=== PATIENT | female | born 1975 | race Caucasian/White ===

== ENCOUNTER 2020-07-10 01:52 | Inpatient (IN) | payer OTHER ==
[~2020-07-10] VITALS: Ht 160 cm; Wt 74.6 kg
[2020-07-10 02:27] LABS: BASOPHILS # (AUTO) 0.07 x10^3/uL (0-0.1); BASOPHILS % (AUTO) 1 % (0-1); EOSINOPHILS # (AUTO) 0.15 x10^3/uL (0-0.4); EOSINOPHILS % (AUTO) 1 % (1-7); LYMPHOCYTES # (AUTO) 0.75 x10^3/uL (1-3.4); LYMPHOCYTES % (AUTO) 5 % (22-44); MD NO; MEAN CORPUSCULAR HEMOGLOBIN 28.8 pg (27.0-34.8); MEAN CORPUSCULAR HGB CONC 32.4 g/dL (32.4-35.8); MEAN CORPUSCULAR VOLUME 88.8 fL (80-100); MEAN PLATELET VOLUME 8.3 fL (7.4-10.4); MONOCYTES # (AUTO) 0.37 x10^3/uL (0.2-0.8); MONOCYTES % (AUTO) 3 % (2-9); NEUTROPHILS # (AUTO) 13.61 x10^3/uL (1.8-6.8); NEUTROPHILS % (AUTO) 91 % (42-75); PLATELET COUNT 369 x10^3/uL (130-400); RED BLOOD COUNT 3.46 x10^6/uL (3.82-5.3); RED CELL DISTRIBUTION WIDTH 12.4 % (9.6-15.2)
[2020-07-10 02:40] LABS: ALANINE AMINOTRANSFERASE 19 U/L (12-78); ALBUMIN 2.4 g/dL (3.4-5.0); ANION GAP 11 mmol/L (5-15); CALCIUM 8.1 mg/dL (8.5-10.1); CHLORIDE 109 mmol/L (98-107); CREATININE 5.31 mg/dL (0.55-1.02)
[2020-07-10 02:44] LABS: ALKALINE PHOSPHATASE 167 U/L (45-117); BILIRUBIN,TOTAL 0.1 mg/dL (0.2-1.0); TOTAL PROTEIN 7.1 g/dL (6.4-8.2); TROPONIN I < 0.015 ng/mL (0.000-0.045)
[2020-07-10] MEDS ORDERED: SODIUM CHLORIDE 0.9% 1,000ML IVBOLUS ONE (03:00)
[2020-07-10] MEDS ORDERED: INSULIN SINGLE DOSE, ER IVPush ONE (03:00)
[2020-07-10] MEDS ORDERED: INSULIN LISPRO SINGLE DOSE, ER SQ-INSULIN ONE (03:07)
--- NOTE | 2020-07-10 03:16 | NUR ---
IVF INFUSING, PT. MEDICATED PER MAR. FAMILY AT FOR SUPPORT.
[2020-07-10] MEDS ORDERED: SODIUM CHLORIDE 0.9% 1,000 ML IV SCH (03:55)
[2020-07-10] MEDS ORDERED: SODIUM BICARBONATE 1 MEQ/ML, 50ML VIAL IVPush ONE (04:00)
[2020-07-10] MEDS ORDERED: DEXTROSE 4 GM TAB.CHEW PO PRN (04:00)
[2020-07-10] MEDS ORDERED: DEXTROSE 50%, 50ML SYRINGE IVPush PRN (04:00)
[2020-07-10] MEDS ORDERED: ACETAMINOPHEN 325 MG TABLET PO PRN (04:00)
[2020-07-10] MEDS ORDERED: CEFTRIAXONE PMX 1GM/50ML 50 ML IV SCH (04:00)
[2020-07-10] MEDS ORDERED: FUROSEMIDE 20 MG/2 ML IV ONE (04:00)
[2020-07-10] MEDS ORDERED: CALCIUM GLUCONATE 0.46MEQ/1ML IVPush ONE (04:00)
[2020-07-10] MEDS ORDERED: GLUCAGON 1 MG IM PRN (04:00)
[2020-07-10] MEDS ORDERED: SODIUM BICARBONATE 8.4% 50 MEQ in SODIUM CHLORIDE 0.45% 1,000 ML IV SCH (04:00)
--- NOTE | 2020-07-10 04:25 | NUR ---
Report given to Ellie. All questions answered
[2020-07-10 04:45] VITALS: BP 158/94
[2020-07-10] MEDS ORDERED: CALCIUM GLUCONATE 4.6 MEQ in SODIUM CHLORIDE 0.9% 100 ML IV ONE (05:00)
[2020-07-10] MEDS ORDERED: CALCIUM GLUCONATE 4.6 MEQ in SODIUM CHLORIDE 0.9% 50 ML IV ONE (05:00)
[2020-07-10] MEDS ORDERED: METF500T17 PO (05:05)
[2020-07-10] MEDS ORDERED: LISI-170 PO (05:05)
[2020-07-10] MEDS: HEPARIN 5,000 UNITS/ML, 1ML SQ SCH ×3 (05:07→20:56)
[2020-07-10] MEDS: ONDANSETRON 2MG/ML, 2ML IVPush PRN ×2 (05:07→22:17)
[2020-07-10 06:07] LABS: CHLORIDE,URINE RANDOM 73 mmol/L; POTASSIUM,URINE RANDOM 22 mmol/L; SODIUM,URINE RANDOM 73 mmol/L
[2020-07-10 06:49] VITALS: BP 164/86
[2020-07-10] MEDS: PROMETHAZINE 25 MG/ML, 1ML IM PRN ×3 (07:06→21:36)
[2020-07-10 07:10] VITALS: BP 164/82
[2020-07-10] MEDS: SENNA/DOCUSATE TABLET PO SCH (08:54)
[2020-07-10] MEDS: SODIUM CHLORIDE FLUSH 10ML SYR IVF SCH ×2 (09:24→20:56)
[2020-07-10] MEDS: INSULIN LISPRO 100 UNITS/ML, PEN SQ-INSULIN SCH ×4 (09:26→20:55)
[2020-07-10] MEDS ORDERED: AMPICILLIN/SULBACTAM 1,500 MG in SODIUM CHLORIDE 0.9% 50 ML IV SCH (09:30)
[2020-07-10] MEDS ORDERED: SODIUM ZIRCONIUM CYCLOSILICATE 5 GM PO ONE (09:30)
[2020-07-10] MEDS ORDERED: LACTATED RINGERS 500 ML IVBOLUS ONE (10:00)
[2020-07-10 10:41] LABS: ANION GAP 7 mmol/L (5-15); CALCIUM 9.4 mg/dL (8.5-10.1); CHLORIDE 112 mmol/L (98-107)
[2020-07-10] MEDS: INSULIN REGULAR 100 UNITS/ML, 3ML VIAL IVPush ONE ×2 (11:00→12:19)
[2020-07-10] MEDS ORDERED: SODIUM ZIRCONIUM CYCLOSILICATE 10 GM PO ONE (11:00)
[2020-07-10] MEDS ORDERED: LACTATED RINGERS 1,000 ML IV SCH (11:00)
[2020-07-10] MEDS: SODIUM CHLORIDE 0.9% 1,000 ML IV SCH (11:30)
[2020-07-10] MEDS: SODIUM BICARB 8.4%,50ML SYR. 75 MEQ in SODIUM CHLORIDE 0.45% 1,000 ML IV SCH (11:45)
[2020-07-10] MEDS: INSULIN GLARGINE 100 UNITS/ML, PEN SQ-INSULIN SCH ×2 (12:19→21:04)
[2020-07-10 12:47] VITALS: BP 155/90
[2020-07-10 12:55] LABS: ANION GAP 7 mmol/L (5-15); CALCIUM 9.2 mg/dL (8.5-10.1); CHLORIDE 112 mmol/L (98-107)
[2020-07-10 12:56] LABS: CREATININE 4.39 mg/dL (0.55-1.02)
[2020-07-10 13:34] LABS: ESTIMATED AVERAGE GLUCOSE 355 mg/dL (0-126)
[2020-07-10 17:08] LABS: ALBUMIN 2.4 g/dL (3.4-5.0); ANION GAP 6 mmol/L (5-15); CHLORIDE 116 mmol/L (98-107); CREATININE 4.05 mg/dL (0.55-1.02)
[2020-07-10] MEDS: SODIUM ZIRCONIUM CYCLOSILICATE 5 GM PO SCH (18:10)
[2020-07-10 19:45] LABS: MICROSCOPIC AUTO
[2020-07-10 19:51] VITALS: BP 156/97
[2020-07-10 20:35] LABS: ANION GAP 7 mmol/L (5-15); CALCIUM 9.1 mg/dL (8.5-10.1); CHLORIDE 115 mmol/L (98-107)
[2020-07-10] MEDS: AMPICILLIN/SULBACTAM 1,500 MG in SODIUM CHLORIDE 0.9% 50 ML IV SCH (22:17)
[2020-07-10] MEDS ORDERED: LORazepam 2 MG/ML, 1ML IVPush ONE (22:30)
[2020-07-11] VITALS (10 sets, daily range): BP systolic 135–186; BP diastolic 80–114
[2020-07-11] MEDS: SODIUM BICARB 8.4%,50ML SYR. 75 MEQ in SODIUM CHLORIDE 0.45% 1,000 ML IV SCH ×3 (00:27→23:44)
[2020-07-11] MEDS: LABETALOL 5MG/ML, 20ML IVPush PRN ×2 (00:27→07:45)
[2020-07-11] MEDS: SODIUM CHLORIDE 0.9% 1,000 ML IV SCH ×3 (00:28→22:25)
[2020-07-11] MEDS ORDERED: LORazepam 2 MG/ML, 1ML IVPush ONE (00:30)
[2020-07-11 02:25] LABS: BASOPHILS # (AUTO) 0.05 x10^3/uL (0-0.1); BASOPHILS % (AUTO) 0 % (0-1); EOSINOPHILS # (AUTO) 0.01 x10^3/uL (0-0.4); EOSINOPHILS % (AUTO) 0 % (1-7); LYMPHOCYTES # (AUTO) 0.86 x10^3/uL (1-3.4); LYMPHOCYTES % (AUTO) 7 % (22-44); MD NO; MEAN CORPUSCULAR HEMOGLOBIN 28.9 pg (27.0-34.8); MEAN CORPUSCULAR HGB CONC 32.7 g/dL (32.4-35.8); MEAN CORPUSCULAR VOLUME 88.3 fL (80-100); MEAN PLATELET VOLUME 8.5 fL (7.4-10.4); MONOCYTES % (AUTO) 2 % (2-9); NEUTROPHILS # (AUTO) 11.48 x10^3/uL (1.8-6.8); NEUTROPHILS % (AUTO) 90 % (42-75); PLATELET COUNT 319 x10^3/uL (130-400); RED BLOOD COUNT 3.28 x10^6/uL (3.82-5.3); RED CELL DISTRIBUTION WIDTH 12.6 % (9.6-15.2)
[2020-07-11 02:26] LABS: CREATININE,URINE RANDOM 58.6 mg/dL
[2020-07-11 02:36] LABS: ALBUMIN 2.3 g/dL (3.4-5.0); ANION GAP 8 mmol/L (5-15); CALCIUM 8.2 mg/dL (8.5-10.1); CHLORIDE 114 mmol/L (98-107)
[2020-07-11 02:40] LABS: % IRON SATURATION 41 % (20-55); ALANINE AMINOTRANSFERASE 18 U/L (12-78); ALKALINE PHOSPHATASE 148 U/L (45-117); BILIRUBIN,TOTAL 0.2 mg/dL (0.2-1.0); CREATININE 3.55 mg/dL (0.55-1.02); IRON LEVEL 89 mcg/dL (50-170); TOTAL IRON BINDING CAPACITY 219 mcg/dL (250-450); TOTAL PROTEIN 6.3 g/dL (6.4-8.2)
[2020-07-11] MEDS ORDERED: SODIUM BICARBONATE 8.4% 50 MEQ in SODIUM CHLORIDE 0.45% 1,000 ML IV SCH (04:00)
[2020-07-11] MEDS: HEPARIN 5,000 UNITS/ML, 1ML SQ SCH ×3 (04:41→20:59)
[2020-07-11] MEDS: PROMETHAZINE 25 MG/ML, 1ML IM PRN (04:42)
[2020-07-11] MEDS: SODIUM ZIRCONIUM CYCLOSILICATE 5 GM PO SCH ×5 (04:42→21:23)
[2020-07-11] MEDS: ONDANSETRON 2MG/ML, 2ML IVPush PRN ×2 (07:40→17:13)
[2020-07-11] MEDS: SODIUM CHLORIDE FLUSH 10ML SYR IVF SCH ×2 (07:46→22:23)
[2020-07-11] MEDS: SENNA/DOCUSATE TABLET PO SCH (07:47)
[2020-07-11 07:53] LABS: ANION GAP 7 mmol/L (5-15); CALCIUM 9.1 mg/dL (8.5-10.1); CHLORIDE 114 mmol/L (98-107); CREATININE 3.36 mg/dL (0.55-1.02)
[2020-07-11] MEDS: INSULIN GLARGINE 100 UNITS/ML, PEN SQ-INSULIN SCH (08:13)
[2020-07-11] MEDS: INSULIN LISPRO 100 UNITS/ML, PEN SQ-INSULIN SCH ×4 (08:14→21:56)
[2020-07-11] MEDS ORDERED: hydrALAzine 20 MG/ML, 1ML IV PRN (09:00)
[2020-07-11] MEDS ORDERED: METOCLOPRAMIDE 5 MG/ML, 2ML IVPush PRN (09:30)
[2020-07-11] MEDS: MORPHINE SULFATE 4 MG/ML, 1ML IVPush PRN ×2 (09:31→10:01)
[2020-07-11] MEDS: PANTOPRAZOLE 40 MG IV IVPush SCH ×2 (09:59→22:29)
[2020-07-11] MEDS: AMLODIPINE 5 MG TABLET PO SCH (10:00)
[2020-07-11] MEDS ORDERED: MAGNESIUM SULFATE/D5W 100 ML IV ONE (11:00)
[2020-07-11] MEDS: CHOLECALCIFEROL 5,000u TAB PO SCH (11:00)
[2020-07-11] MEDS: AMPICILLIN/SULBACTAM 1,500 MG in SODIUM CHLORIDE 0.9% 50 ML IV SCH ×2 (11:46→23:31)
[2020-07-11] MEDS: METOPROLOL TARTRATE 50 MG TAB PO SCH (17:16)
[2020-07-11] MEDS ORDERED: INSULIN GLARGINE 100 UNITS/ML, PEN SQ-INSULIN SCH ×2 (21:00)
[2020-07-12 02:59] VITALS: BP 139/79
[2020-07-12] MEDS: HEPARIN 5,000 UNITS/ML, 1ML SQ SCH ×3 (04:43→20:23)
[2020-07-12] MEDS: ONDANSETRON 2MG/ML, 2ML IVPush PRN (05:07)
[2020-07-12 05:20] LABS: ANION GAP 7 mmol/L (5-15); CHLORIDE 115 mmol/L (98-107)
[2020-07-12 05:27] LABS: ALANINE AMINOTRANSFERASE 19 U/L (12-78); ALKALINE PHOSPHATASE 120 U/L (45-117); BILIRUBIN,TOTAL 0.2 mg/dL (0.2-1.0); CREATININE 2.71 mg/dL (0.55-1.02); TOTAL PROTEIN 5.7 g/dL (6.4-8.2)
[2020-07-12 05:28] LABS: BASOPHILS # (AUTO) 0.05 x10^3/uL (0-0.1); BASOPHILS % (AUTO) 1 % (0-1); EOSINOPHILS # (AUTO) 0.17 x10^3/uL (0-0.4); EOSINOPHILS % (AUTO) 2 % (1-7); LYMPHOCYTES # (AUTO) 2.13 x10^3/uL (1-3.4); LYMPHOCYTES % (AUTO) 23 % (22-44); MD NO; MEAN CORPUSCULAR HEMOGLOBIN 28.7 pg (27.0-34.8); MEAN CORPUSCULAR VOLUME 89.5 fL (80-100); MEAN PLATELET VOLUME 7.9 fL (7.4-10.4); MONOCYTES # (AUTO) 0.68 x10^3/uL (0.2-0.8); MONOCYTES % (AUTO) 7 % (2-9); NEUTROPHILS # (AUTO) 6.29 x10^3/uL (1.8-6.8); NEUTROPHILS % (AUTO) 67 % (42-75); PLATELET COUNT 305 x10^3/uL (130-400); RED BLOOD COUNT 3.05 x10^6/uL (3.82-5.3); RED CELL DISTRIBUTION WIDTH 12.8 % (9.6-15.2)
[2020-07-12] MEDS: METOPROLOL TARTRATE 50 MG TAB PO SCH ×2 (06:10→18:26)
[2020-07-12 06:55] VITALS: BP 154/88
[2020-07-12] MEDS: INSULIN LISPRO 100 UNITS/ML, PEN SQ-INSULIN SCH ×4 (07:37→20:44)
[2020-07-12] MEDS: SENNA/DOCUSATE TABLET PO SCH (09:00)
[2020-07-12] MEDS: SODIUM ZIRCONIUM CYCLOSILICATE 5 GM PO SCH (09:00)
[2020-07-12] MEDS: CHOLECALCIFEROL 5,000u TAB PO SCH (11:01)
[2020-07-12] MEDS: AMLODIPINE 5 MG TABLET PO SCH (11:02)
[2020-07-12] MEDS: PANTOPRAZOLE 40 MG IV IVPush SCH ×2 (11:02→22:38)
[2020-07-12] MEDS: SODIUM CHLORIDE 0.45% 1,000 ML IV SCH ×2 (11:02→20:37)
[2020-07-12] MEDS: SODIUM CHLORIDE FLUSH 10ML SYR IVF SCH ×2 (11:02→20:45)
[2020-07-12] MEDS: AMPICILLIN/SULBACTAM 1,500 MG in SODIUM CHLORIDE 0.9% 50 ML IV SCH ×2 (12:29→23:34)
[2020-07-12] MEDS: FLUCONAZOLE 200 MG TABLET PO SCH (12:29)
[2020-07-12 13:10] VITALS: BP 162/93
[2020-07-12 18:25] VITALS: BP 158/84
[2020-07-12 19:55] VITALS: BP 156/84
[2020-07-13 01:44] VITALS: BP 144/83
[2020-07-13] MEDS: HEPARIN 5,000 UNITS/ML, 1ML SQ SCH ×3 (04:08→20:08)
[2020-07-13 05:13] LABS: ALBUMIN 2.2 g/dL (3.4-5.0); ANION GAP 7 mmol/L (5-15); CALCIUM 8.3 mg/dL (8.5-10.1); CHLORIDE 113 mmol/L (98-107); CREATININE 2.58 mg/dL (0.55-1.02)
[2020-07-13 05:24] LABS: BASOPHILS # (AUTO) 0.05 x10^3/uL (0-0.1); BASOPHILS % (AUTO) 1 % (0-1); EOSINOPHILS % (AUTO) 3 % (1-7); LYMPHOCYTES # (AUTO) 2.01 x10^3/uL (1-3.4); LYMPHOCYTES % (AUTO) 20 % (22-44); MD NO; MEAN CORPUSCULAR HEMOGLOBIN 28.9 pg (27.0-34.8); MEAN CORPUSCULAR HGB CONC 32.3 g/dL (32.4-35.8); MEAN CORPUSCULAR VOLUME 89.6 fL (80-100); MEAN PLATELET VOLUME 8.9 fL (7.4-10.4); MONOCYTES # (AUTO) 0.51 x10^3/uL (0.2-0.8); MONOCYTES % (AUTO) 5 % (2-9); NEUTROPHILS # (AUTO) 7.25 x10^3/uL (1.8-6.8); NEUTROPHILS % (AUTO) 72 % (42-75); PLATELET COUNT 213 x10^3/uL (130-400); RED BLOOD COUNT 3.46 x10^6/uL (3.82-5.3); RED CELL DISTRIBUTION WIDTH 12.4 % (9.6-15.2)
[2020-07-13] MEDS: METOPROLOL TARTRATE 50 MG TAB PO SCH ×2 (06:28→17:55)
[2020-07-13] MEDS: SODIUM CHLORIDE 0.45% 1,000 ML IV SCH (06:34)
[2020-07-13] MEDS: INSULIN LISPRO 100 UNITS/ML, PEN SQ-INSULIN SCH ×4 (07:00→22:10)
[2020-07-13 07:22] VITALS: BP 157/84
[2020-07-13] MEDS: SENNA/DOCUSATE TABLET PO SCH (08:44)
[2020-07-13] MEDS: PANTOPRAZOLE 40 MG IV IVPush SCH ×2 (08:45→22:14)
[2020-07-13] MEDS: SODIUM CHLORIDE FLUSH 10ML SYR IVF SCH ×2 (08:45→20:13)
[2020-07-13] MEDS: CHOLECALCIFEROL 5,000u TAB PO SCH (08:45)
[2020-07-13] MEDS: AMLODIPINE 5 MG TABLET PO SCH (08:45)
[2020-07-13] MEDS: FLUCONAZOLE 200 MG TABLET PO SCH (08:45)
[2020-07-13] MEDS: INSULIN GLARGINE 100 UNITS/ML, PEN SQ-INSULIN SCH ×2 (09:30→22:14)
[2020-07-13] MEDS ORDERED: ERGOCALCIFEROL 50,000 UNIT CAPSULE PO SCH (09:30)
[2020-07-13 11:24] VITALS: BP 127/75
[2020-07-13] MEDS: AMPICILLIN/SULBACTAM 1,500 MG in SODIUM CHLORIDE 0.9% 50 ML IV SCH ×2 (11:25→23:40)
[2020-07-13 13:29] VITALS: BP 113/76
[2020-07-13 17:54] VITALS: BP 143/89
[2020-07-13 19:29] VITALS: BP 126/79
[2020-07-14 01:18] VITALS: BP 147/82
[2020-07-14] MEDS: HEPARIN 5,000 UNITS/ML, 1ML SQ SCH ×2 (04:30→12:00)
[2020-07-14 05:07] LABS: BASOPHILS # (AUTO) 0.05 x10^3/uL (0-0.1); BASOPHILS % (AUTO) 1 % (0-1); EOSINOPHILS # (AUTO) 0.36 x10^3/uL (0-0.4); EOSINOPHILS % (AUTO) 4 % (1-7); LYMPHOCYTES # (AUTO) 1.92 x10^3/uL (1-3.4); LYMPHOCYTES % (AUTO) 22 % (22-44); MD NO; MEAN CORPUSCULAR HEMOGLOBIN 28.6 pg (27.0-34.8); MEAN CORPUSCULAR HGB CONC 32.1 g/dL (32.4-35.8); MEAN CORPUSCULAR VOLUME 89.2 fL (80-100); MEAN PLATELET VOLUME 8.6 fL (7.4-10.4); MONOCYTES # (AUTO) 0.64 x10^3/uL (0.2-0.8); MONOCYTES % (AUTO) 7 % (2-9); NEUTROPHILS # (AUTO) 5.78 x10^3/uL (1.8-6.8); NEUTROPHILS % (AUTO) 66 % (42-75); PLATELET COUNT 229 x10^3/uL (130-400); RED BLOOD COUNT 3.16 x10^6/uL (3.82-5.3); RED CELL DISTRIBUTION WIDTH 12.4 % (9.6-15.2)
[2020-07-14 05:14] LABS: ALANINE AMINOTRANSFERASE 19 U/L (12-78); ANION GAP 6 mmol/L (5-15); CALCIUM 8.5 mg/dL (8.5-10.1); CHLORIDE 113 mmol/L (98-107); CREATININE 2.62 mg/dL (0.55-1.02)
[2020-07-14 05:17] LABS: ALKALINE PHOSPHATASE 135 U/L (45-117); BILIRUBIN,TOTAL 0.2 mg/dL (0.2-1.0); TOTAL PROTEIN 5.7 g/dL (6.4-8.2)
[2020-07-14] MEDS: METOPROLOL TARTRATE 50 MG TAB PO SCH (06:16)
[2020-07-14] MEDS: INSULIN LISPRO 100 UNITS/ML, PEN SQ-INSULIN SCH ×2 (07:00→11:00)
[2020-07-14] MEDS: SENNA/DOCUSATE TABLET PO SCH (08:07)
[2020-07-14] MEDS: SODIUM CHLORIDE FLUSH 10ML SYR IVF SCH (09:00)
[2020-07-14] MEDS ORDERED: PANTOPRAZOLE 40MG TABLET PO SCH (09:30)
[2020-07-14] MEDS ORDERED: AMOXICILLIN/CLAV 875-125MG TABLET PO SCH (09:30)
[2020-07-14 09:59] VITALS: BP 153/88
[2020-07-14] MEDS: CHOLECALCIFEROL 5,000u TAB PO SCH (10:08)
[2020-07-14] MEDS: FLUCONAZOLE 200 MG TABLET PO SCH (10:09)
[2020-07-14] MEDS: AMLODIPINE 5 MG TABLET PO SCH (10:09)
[2020-07-14] MEDS ORDERED: PANT40TA5 PO (10:48)
[2020-07-14] MEDS ORDERED: HYDR-3341 PO (10:48)
[2020-07-14] MEDS ORDERED: METO50TA82 PO (10:48)
[2020-07-14] MEDS ORDERED: INSU100I13 SQ-INSULIN (10:48)
[2020-07-14] MEDS ORDERED: FLUC200T PO (10:48)
[2020-07-14] MEDS ORDERED: AMOX1TAB12 PO (10:48)
[2020-07-14] MEDS ORDERED: CHOL500045 PO (10:48)
[2020-07-14] MEDS ORDERED: ONDA4TAB7 PO (10:48)
[2020-07-14] MEDS ORDERED: AMLO-150 PO (10:48)
[2020-07-14] MEDS ORDERED: INSU100I11 SQ-INSULIN (10:48)
[2020-07-14] MEDS ORDERED: INSULIN GLARGINE 100 UNITS/ML, PEN SQ-INSULIN SCH (21:00)
== END 2020-07-14 13:16 | disposition home or self-care (01) | DRG 683 ==
LOC: ED 03:38 → EDIP 03:55 → 5SO 04:40 → DCLOUNGE 07-14 13:01
PROVIDERS: ADMIT Family Medicine; ATTEND Internal Medicine
DX: N17.0 Acute kidney failure with tubular necrosis (principal); E87.0 Hyperosmolality and hypernatremia; E87.2 Acidosis; N76.4 Abscess of vulva; D64.9 Anemia, unspecified; E11.22 Type 2 diabetes mellitus with diabetic chronic kidney disease; E83.42 Hypomagnesemia; E86.0 Dehydration; E87.5 Hyperkalemia; I12.9 Hypertensive chronic kidney disease with stage 1 through stage 4 chronic kidney disease, or unspecified chronic kidney disease; I16.0 Hypertensive urgency; K59.00 Constipation, unspecified; N18.9 Chronic kidney disease, unspecified; N25.0 Renal osteodystrophy; R00.0 Tachycardia, unspecified; E11.65 Type 2 diabetes mellitus with hyperglycemia; E78.5 Hyperlipidemia, unspecified; D72.829 Elevated white blood cell count, unspecified; N76.2 Acute vulvitis; Z87.891 Personal history of nicotine dependence; Z90.49 Acquired absence of other specified parts of digestive tract
CPT/HCPCS: 36415; 36600; 76770; 80048; 80053; 80069; 81001; 82306; 82436; 82570; 82728; 82800; 82962; 83036; 83540; 83550; 83735; 83970; 84100; 84132; 84133; 84145; 84156; 84300; 84484; 84550; 85025; 87040; 87070; 87147; 87205; 93005; G0378; J0610; J0696; J1644; J1815; J2405; J2550; J7120; C9113; J0295; J0360; J1940; J2060; J2270; J2765; J7030